=== PATIENT | female | born 1950 | race Caucasian/White ===

== ENCOUNTER 2018-10-06 11:35 | Outpatient (CLI) | payer BC, MEDICARE, OTHER ==
[2018-10-06 12:22] LABS: eGFR (Non-African) > 60
== END 2018-10-06 11:37 ==
LOC: LAB 11:35
PROVIDERS: ATTEND Nurse Practitioner Family
DX: Z01.31 Encounter for examination of blood pressure with abnormal findings (principal); I10 Essential (primary) hypertension
CPT/HCPCS: 36415; 80053

== ENCOUNTER 2019-02-23 14:05 | Emergency (ER) | payer BC, MEDICARE, OTHER ==
--- NOTE | 2019-02-23 14:10 | ED Physician Documentation ---
General Adult - HISTORIAN Historian: patient - HPI Stated Complaint: swelling in lip and shortness of air Chief Complaint: General Adult Onset: hours (3) Timing: still present Severity: mild Further Comments: yes (she reports this am she did take a new pill of ibuprofen and she noticed about 0815 she had some swelling in her lip (mild) so she did take a benadryl at that time . she had mild relief and at noon she did take another 25 mg of benadryl for lip swelling. No shortness of air or other complaints. NO rash. She states after work she decided she needed to be seen for lip swelling and after her b/p reading was noted she feels slighty short on air "I am all worked up now" She has not had her b/p meds x 2 days.) - ROS CONST: no problems CVS/RESP: shortness of breath GI/: none NEURO/PSYCH: anxiety (this is all making her anxious she said ). denies: headache, fainting, dizziness, tingling, numbness, difficulty walking, difficulty with speech - PAST HX Past History: hypertension Immunizations: UTD Allergies/Adverse Reactions: Allergies Allergy/AdvReac Type Severity Reaction Status Date / Time amoxicillin [From Augmentin] Allergy Verified 02/23/19 14:20 ciprofloxacin [From Cipro] Allergy Verified 02/23/19 14:20 clarithromycin [From Biaxin] Allergy Verified 02/23/19 14:20 clavulanic acid Allergy Verified 02/23/19 14:20 [From Augmentin] Penicillins Allergy Verified 02/23/19 14:20 Home Medications: Ambulatory Orders Medication Instructions Recorded Metoprolol Succinate [Toprol Xl] 50 mg PO DAILY 02/23/19 amLODIPine BESYLATE [Norvasc] 5 mg PO 0900 02/23/19 - SOCIAL HX Smoking History: non-smoker Alcohol Use: none Drug Use: none - FAMILY HX Family History: No - REVIEWED ASSESSMENTS Nursing Assessment Reviewed: Yes Vitals Reviewed: Yes Progress - Progress Progress: 1515: reports she is feeling better. Lips is visibly less swollen. No further shortness of air. B/P is improved DG 1540: no further lip swelling. B/P is returned to normal. She has no further complaints DG General Adult Physical Exam - PHYSICAL EXAM GENERAL APPEARANCE: no distress EENT: eye inspection normal, pharynx normal, no signs of dehydration, other (left upper lip with mild swelling. ) NECK: normal inspection RESPIRATORY: no resp distress, chest non-tender, breath sounds normal CVS: reg rate & rhythm, heart sounds normal, equal pulses ABDOMEN: soft, normal bowel sounds, no distension SKIN: warm/dry, normal color EXTREMITIES: non-tender, no edema NEURO: oriented X3 Discharge Clincal Impression: Medication reaction Qualifiers: Encounter type: initial encounter Qualified Code(s): T50.905A - Adverse effect of unspecified drugs, medicaments and biological substances, initial encounter Hypertension Qualifiers: Hypertension type: unspecified Qualified Code(s): I10 - Essential (primary) hypertension Referrals: Amrita Nelson PRN [Primary Care Provider] - 2 Days Comments: 1. Continue meds at home 2. DO not repeat med taken this am 3. Take benadryl as directed as needed for symptoms 4. Take b/p meds 5. Follow up with PCP in 2 days 6. Return to ER for any increased concerns Condition: Stable Disposition: 01 HOME, SELF-CARE Decision to Admit: NO Date of Decison to Admit: 02/23/19 Decision Time: 15:47
[2019-02-23 14:39] LABS: BASOPHILS % 0.7 % (0.0-1.5); NEUTROPHILS # 8.2 # k/uL (1.4-7.7)
[2019-02-23] MEDS: 0.9 % SODIUM CHLORIDE 1,000 ML IV ONE (14:41)
[2019-02-23] MEDS: methylPREDNISolone SOD SUCC 125 MG/2 ML VIAL IVP ONE (14:41)
[2019-02-23] MEDS: diphenhydrAMINE HCL 50 MG/ML VIAL IVP ONE (14:41)
[2019-02-23] MEDS: METOPROLOL TARTRATE 25 MG TABLET PO SCH (14:50)
[2019-02-23] MEDS ORDERED: METOPROLOL TARTRATE 25 MG TABLET PO SCH (15:00)
[2019-02-23 15:04] LABS: eGFR (Non-African) > 60
[2019-02-23] MEDS: METOPROLOL TARTRATE 50 MG TABLET ONE (15:43)
[2019-02-23 15:46] VITALS: BP 157/76
== END 2019-02-23 15:53 | disposition home or self-care (01) ==
LOC: ED 14:05
DX: T50.901A Poisoning by unspecified drugs, medicaments and biological substances, accidental (unintentional), initial encounter (principal); I10 Essential (primary) hypertension
CPT/HCPCS: 80053; 84484; 85025; 93005; 96361; 96374; 96375; 99283; 99284; J1200; J2930; J7030; S1016